=== PATIENT | female | born 1960 | race Caucasian/White ===

== ENCOUNTER 2017-12-09 15:31 | Inpatient (IN) | payer MEDICAID, OTHER ==
[~2017-12-09] VITALS: Ht 170.2 cm; Wt 68.0 kg
[~2017-12-09 15:31] MED LIST: CYCL-1 PO
[2017-12-09] MEDS ORDERED: normal saline 1000ML IV soln IV ONE (15:50)
[2017-12-09 16:28] LABS: BASOPHILS % (AUTO) 0.5 % (0-1); EOSINOPHILS # (AUTO) 0.1 X10'3 (0-0.9); HEMATOCRIT 31.2 % (35.0-45.0); HEMOGLOBIN 10.8 g/dl (12.0-16.0); LYMPHOCYTES # (AUTO) 1.3 X10'3 (1.1-4.8); LYMPHOCYTES % (AUTO) 19.9 % (21-51); MEAN CORPUSCULAR HEMOGLOBIN 29.8 PG (27.0-31.0); MEAN CORPUSCULAR HGB CONC 34.4 % (33.0-36.5); MEAN CORPUSCULAR VOLUME 86.5 FL (78-98); MEAN PLATELET VOLUME 9.6 FL (7.4-10.4); MONOCYTES # (AUTO) 0.5 X10'3 (0-0.9); MONOCYTES % (AUTO) 8.1 % (2-12); NEUTROPHILS # (AUTO) 4.4 X10'3 (1.8-7.7); NEUTROPHILS % (AUTO) 69.5 % (42-75); PLATELET COUNT 165 X10'3 (140-440); RED BLOOD COUNT 3.61 X10'6 (4.20-5.60); WHITE BLOOD COUNT 6.3 X10'3 (4.5-11.0)
[2017-12-09 16:41] LABS: PARTIAL THROMBOPLASTIN TIME 24 SECONDS (22-32); PROTHROMBIN TIME 10.7 SECONDS (9.0-12.0)
[2017-12-09 16:47] LABS: LACTIC SEPSIS 2.3 MMOL/L (0.4-2.0)
[2017-12-09 16:55] LABS: ALANINE AMINOTRANSFERASE 19 U/L (12-78); ALBUMIN 3.5 G/DL (3.4-5.0); ALBUMIN/GLOBULIN RATIO 0.9 (1.1-1.5); ALKALINE PHOSPHATASE 127 IU/L (46-116); ANION GAP 13 (8-16); ASPARTATE AMINO TRANSFERASE 11 U/L (10-37); BILIRUBIN,TOTAL 0.8 MG/DL (0.1-1.0); BLOOD UREA NITROGEN 26 MG/DL (7-18); BUN/CREATININE RATIO 9.4 (6.6-38.0); CALCIUM 10.2 MG/DL (8.5-10.1); CHLORIDE 93 MMOL/L (99-107); CREATININE 2.76 MG/DL (0.40-0.90); ETHANOL < 0.010 GM/DL (0.0-0.010); POTASSIUM 3.3 MMOL/L (3.5-5.1); SODIUM 129 MMOL/L (135-145); TOTAL CARBON DIOXIDE 23.4 MMOL/L (24-32); TOTAL PROTEIN 7.6 G/DL (6.4-8.2); TROPONIN I < 0.04 NG/ML (0.0-0.05); eGFR 18 ML/MIN
[2017-12-09 17:02] LABS: GLUCOSE 693 MG/DL (70-104)
[2017-12-09] MEDS ORDERED: potassium Cl 10 mEq/100mL bag IV ONE (17:30)
[2017-12-09] MEDS ORDERED: insulin regular, human 10 units/0.1 ml syringe IV ONE (17:45)
[2017-12-09] MEDS: potassium 10mEq/100ml NS w/LIDOcaine (10mg/bag) IV SCH ×2 (17:50→19:08)
[2017-12-09] MEDS ORDERED: glucagon, human recombinant 1mg kit SUBCUT PRN (18:15)
[2017-12-09] MEDS ORDERED: ondansetron/PF 4mg/2ml inj IV PRN (18:15)
[2017-12-09] MEDS ORDERED: mag hydrox/Alum hydrox/simeth 30ml oral suspension PO PRN (18:15)
[2017-12-09] MEDS ORDERED: MESSAGE TO PHARMACY PO ONE (18:15)
[2017-12-09] MEDS ORDERED: acetaminophen 325mg tablet PO PRN ×2 (18:15)
[2017-12-09] MEDS ORDERED: dextrose 50%-water 50ml dispensing syringe IV PRN ×2 (18:15)
[2017-12-09] MEDS ORDERED: morphine 4 MG/ML inj SYRINge IV PRN (18:15)
[2017-12-09] MEDS ORDERED: potassium Cl 20 mEq SR tablet PO PRN (18:15)
[2017-12-09] MEDS ORDERED: dextrose ORAL solution 15 GM/59 ML bottle PO PRN ×2 (18:15)
[2017-12-09] MEDS ORDERED: potassium Cl 40MEQ/NS 500ml 500 ML IV PRN ×2 (18:15)
[2017-12-09] MEDS ORDERED: HYDROcodone/acetaminophen 5mg/325mg tablet PO PRN (18:15)
[2017-12-09] MEDS: normal saline 1000ml 1,000 ML IV SCH (18:25)
[2017-12-09 18:39] LABS: HEMOGLOBIN A1C > 14.0 % (4.5-6.2)
[2017-12-09] MEDS: docusate sod 100mg capsule PO SCH (20:09)
[2017-12-09] MEDS: heparin, porcine 5000 units/ml vial SQ SCH (20:09)
[2017-12-09] MEDS ORDERED: GABA-532 PO (20:32)
[2017-12-09] MEDS ORDERED: temazepam 15mg capsule PO PRN (21:00)
[2017-12-09 21:10] VITALS: BP 106/65
[2017-12-09 21:44] LABS: CLARITY,URINE CLEAR (Clear); COLOR,URINE YELLOW (Yellow); GLUCOSE, URINE >=1000 mg/dl (Neg); KETONES,URINE NEGATIVE (Neg); LEUKOCYTE ESTERASE ,URINE NEGATIVE (Neg); NITRITES, URINE NEGATIVE (Neg); OCCULT BLOOD,URINE NEGATIVE (Neg); PH,URINE 5.5 (4.8-8.0); PROTEIN,URINE NEGATIVE (Neg); UROBILINOGEN,URINE 0.2 E.U/dL (0.2-1.0)
[2017-12-09 21:45] LABS: UA COLLECTION TYPE VOIDED
[2017-12-09] MEDS ORDERED: morphine 2 MG/ML inj. syringe IV PRN (21:47)
[2017-12-09 21:50] LABS: URINE HCG NEGATIVE (NEG)
[2017-12-09 21:51] LABS: BACTERIA,URINE 2+ /HPF (Neg); MUCUS STRANDS FEW /LPF (Neg); RBC,URINE NONE SEEN /HPF (0-2); SQUAMOUS EPITHELIAL CELL,UR MODERATE /LPF (FEW); WBC,URINE 0-4 /HPF (0-4); YEAST FEW /HPF (NEGATIVE)
[2017-12-09 21:52] LABS: URINE AMPHETAMINE SCREEN POSITIVE (Neg); URINE BARBITUATE SCREEN NEGATIVE (Neg); URINE BENZODIAZEPINES SCREEN NEGATIVE (Neg); URINE CANNABINOID SCREEN NEGATIVE (Neg); URINE COCAINE SCREEN NEGATIVE (Neg); URINE METHADONE SCREEN NEGATIVE (Neg); URINE OPIATE SCREEN NEGATIVE (Neg); URINE PHENCYCLIDINE SCREEN NEGATIVE (Neg)
[2017-12-09] MEDS: insulin Lispro (HumaLOG) vial - multi-dose SQ SCH (21:56)
[2017-12-09] MEDS: insulin glargine (Lantus) pen - multi-dose SQ SCH (21:57)
[2017-12-09] MEDS ORDERED: INSU100V9 SQ (23:28)
[2017-12-09] MEDS ORDERED: HYDR12.5 PO (23:30)
[2017-12-09] MEDS ORDERED: SAXA5TAB PO (23:32)
[2017-12-10] VITALS: BP 102/74
[2017-12-10] MEDS: normal saline 1000ml 1,000 ML IV SCH ×4 (01:21→21:40)
[2017-12-10 05:07] LABS: BASOPHILS % (AUTO) 0.5 % (0-1); EOSINOPHILS # (AUTO) 0.1 X10'3 (0-0.9); HEMATOCRIT 28.6 % (35.0-45.0); HEMOGLOBIN 9.8 g/dl (12.0-16.0); LYMPHOCYTES # (AUTO) 1.9 X10'3 (1.1-4.8); LYMPHOCYTES % (AUTO) 39.1 % (21-51); MEAN CORPUSCULAR HEMOGLOBIN 30.1 PG (27.0-31.0); MEAN CORPUSCULAR HGB CONC 34.2 % (33.0-36.5); MEAN CORPUSCULAR VOLUME 88.1 FL (78-98); MEAN PLATELET VOLUME 9.3 FL (7.4-10.4); MONOCYTES # (AUTO) 0.5 X10'3 (0-0.9); MONOCYTES % (AUTO) 9.6 % (2-12); NEUTROPHILS # (AUTO) 2.3 X10'3 (1.8-7.7); NEUTROPHILS % (AUTO) 47.8 % (42-75); PLATELET COUNT 120 X10'3 (140-440); RED BLOOD COUNT 3.24 X10'6 (4.20-5.60); WHITE BLOOD COUNT 4.9 X10'3 (4.5-11.0)
[2017-12-10 05:25] LABS: ALANINE AMINOTRANSFERASE 22 U/L (12-78); ALBUMIN 2.5 G/DL (3.4-5.0); ALBUMIN/GLOBULIN RATIO 0.7 (1.1-1.5); ALKALINE PHOSPHATASE 102 IU/L (46-116); ANION GAP 6 (8-16); ASPARTATE AMINO TRANSFERASE 12 U/L (10-37); BILIRUBIN,TOTAL 0.7 MG/DL (0.1-1.0); BLOOD UREA NITROGEN 21 MG/DL (7-18); BUN/CREATININE RATIO 13.3 (6.6-38.0); CALCIUM 8.6 MG/DL (8.5-10.1); CHLORIDE 106 MMOL/L (99-107); CHOL/HDL RATIO 3.6 (0.00-4.99); CHOLESTEROL 153 MG/DL (0-200); CREATININE 1.58 MG/DL (0.40-0.90); GLUCOSE 252 MG/DL (70-104); HDL CHOLESTEROL 43 MG/DL (35-60); LDL CHOLESTEROL 89 MG/DL (50-100); SODIUM 137 MMOL/L (135-145); TOTAL CARBON DIOXIDE 25.2 MMOL/L (24-32); TOTAL PROTEIN 5.9 G/DL (6.4-8.2); TRIGLYCERIDES 178 MG/DL (20-135); eGFR 34 ML/MIN
[2017-12-10] MEDS: potassium Cl 20 mEq SR tablet PO PRN ×3 (05:41→18:35)
[2017-12-10 07:17] VITALS: BP 138/72
[2017-12-10 07:18] VITALS: BP 113/65
[2017-12-10] MEDS: K and/or MAG REPLACEMENT MC SCH (08:00)
[2017-12-10] MEDS: heparin, porcine 5000 units/ml vial SQ SCH ×2 (08:02→20:00)
[2017-12-10] MEDS: nystatin 15 GM powder TP SCH ×3 (08:02→21:40)
[2017-12-10] MEDS: docusate sod 100mg capsule PO SCH ×2 (08:02→20:00)
[2017-12-10] MEDS: insulin Lispro (HumaLOG) vial - multi-dose SQ SCH ×3 (08:30→18:34)
[2017-12-10 13:03] VITALS: BP 98/59
[2017-12-10 18:45] VITALS: BP 105/55
[2017-12-10] MEDS: insulin glargine (Lantus) pen - multi-dose SQ SCH (21:36)
[2017-12-10 23:00] VITALS: BP 92/51
[2017-12-11] MEDS: normal saline 1000ml 1,000 ML IV SCH ×3 (02:38→19:13)
[2017-12-11 07:00] VITALS: BP 98/43
[2017-12-11 07:21] LABS: BASOPHILS % (AUTO) 0.5 % (0-1); EOSINOPHILS # (AUTO) 0.1 X10'3 (0-0.9); EOSINOPHILS % (AUTO) 2.3 % (0-6); HEMATOCRIT 27.6 % (35.0-45.0); HEMOGLOBIN 9.6 g/dl (12.0-16.0); LYMPHOCYTES # (AUTO) 1.8 X10'3 (1.1-4.8); LYMPHOCYTES % (AUTO) 39.8 % (21-51); MEAN CORPUSCULAR HEMOGLOBIN 30.3 PG (27.0-31.0); MEAN CORPUSCULAR HGB CONC 34.7 % (33.0-36.5); MEAN CORPUSCULAR VOLUME 87.4 FL (78-98); MEAN PLATELET VOLUME 8.8 FL (7.4-10.4); MONOCYTES # (AUTO) 0.3 X10'3 (0-0.9); MONOCYTES % (AUTO) 7.6 % (2-12); NEUTROPHILS # (AUTO) 2.2 X10'3 (1.8-7.7); NEUTROPHILS % (AUTO) 49.8 % (42-75); PLATELET COUNT 128 X10'3 (140-440); RED BLOOD COUNT 3.16 X10'6 (4.20-5.60); RED CELL DISTRIBUTION WIDTH 14.1 % (11.5-14.5); WHITE BLOOD COUNT 4.5 X10'3 (4.5-11.0)
[2017-12-11 07:37] LABS: ALANINE AMINOTRANSFERASE 19 U/L (12-78); ALBUMIN 2.2 G/DL (3.4-5.0); ALBUMIN/GLOBULIN RATIO 0.6 (1.1-1.5); ALKALINE PHOSPHATASE 98 IU/L (46-116); ANION GAP 8 (8-16); ASPARTATE AMINO TRANSFERASE 14 U/L (10-37); BILIRUBIN,TOTAL 0.5 MG/DL (0.1-1.0); BLOOD UREA NITROGEN 21 MG/DL (7-18); BUN/CREATININE RATIO 18.3 (6.6-38.0); CHLORIDE 108 MMOL/L (99-107); CREATININE 1.15 MG/DL (0.40-0.90); GLUCOSE 274 MG/DL (70-104); POTASSIUM 4.1 MMOL/L (3.5-5.1); SODIUM 139 MMOL/L (135-145); TOTAL CARBON DIOXIDE 23.5 MMOL/L (24-32); TOTAL PROTEIN 5.6 G/DL (6.4-8.2); eGFR 49 ML/MIN
[2017-12-11] MEDS: heparin, porcine 5000 units/ml vial SQ SCH ×2 (08:00→20:00)
[2017-12-11] MEDS: nystatin 15 GM powder TP SCH ×3 (08:00→21:00)
[2017-12-11] MEDS: K and/or MAG REPLACEMENT MC SCH (08:00)
[2017-12-11] MEDS: docusate sod 100mg capsule PO SCH ×2 (08:00→20:00)
[2017-12-11 11:00] VITALS: BP 102/53
[2017-12-11] MEDS ORDERED: magnesium Cl slow-release 64mg tablet PO PRN (11:55)
[2017-12-11] MEDS ORDERED: magnesium 1gm/100ml D5W IVPB 100 ML IV PRN (11:55)
[2017-12-11] MEDS ORDERED: magnesium 4gm in 100ml NS 100 ML IV PRN (11:55)
[2017-12-11] MEDS: insulin Lispro (HumaLOG) vial - multi-dose SQ SCH ×2 (13:27→19:20)
[2017-12-11 19:20] VITALS: BP 116/75
[2017-12-11] MEDS: insulin glargine (Lantus) pen - multi-dose SQ SCH (21:43)
[2017-12-11 23:00] VITALS: BP 123/63
[2017-12-12] MEDS: normal saline 1000ml 1,000 ML IV SCH (05:13)
[2017-12-12 05:51] LABS: BASOPHILS % (AUTO) 0.6 % (0-1); EOSINOPHILS # (AUTO) 0.1 X10'3 (0-0.9); HEMATOCRIT 30.6 % (35.0-45.0); HEMOGLOBIN 10.5 g/dl (12.0-16.0); LYMPHOCYTES # (AUTO) 1.9 X10'3 (1.1-4.8); LYMPHOCYTES % (AUTO) 41.2 % (21-51); MEAN CORPUSCULAR HEMOGLOBIN 29.9 PG (27.0-31.0); MEAN CORPUSCULAR HGB CONC 34.1 % (33.0-36.5); MEAN CORPUSCULAR VOLUME 87.6 FL (78-98); MONOCYTES # (AUTO) 0.4 X10'3 (0-0.9); NEUTROPHILS # (AUTO) 2.2 X10'3 (1.8-7.7); NEUTROPHILS % (AUTO) 48.2 % (42-75); PLATELET COUNT 147 X10'3 (140-440); RED CELL DISTRIBUTION WIDTH 14.2 % (11.5-14.5); WHITE BLOOD COUNT 4.5 X10'3 (4.5-11.0)
[2017-12-12 06:34] LABS: ALANINE AMINOTRANSFERASE 20 U/L (12-78); ALBUMIN 2.4 G/DL (3.4-5.0); ALBUMIN/GLOBULIN RATIO 0.6 (1.1-1.5); ALKALINE PHOSPHATASE 106 IU/L (46-116); ANION GAP 11 (8-16); ASPARTATE AMINO TRANSFERASE 17 U/L (10-37); BILIRUBIN,TOTAL 0.5 MG/DL (0.1-1.0); BLOOD UREA NITROGEN 13 MG/DL (7-18); BUN/CREATININE RATIO 14.3 (6.6-38.0); CALCIUM 8.1 MG/DL (8.5-10.1); CHLORIDE 107 MMOL/L (99-107); CREATININE 0.91 MG/DL (0.40-0.90); GLUCOSE 148 MG/DL (70-104); MAGNESIUM 1.3 MG/DL (1.5-2.4); PHOSPHORUS 2.2 MG/DL (2.3-4.5); POTASSIUM 3.4 MMOL/L (3.5-5.1); SODIUM 141 MMOL/L (135-145); TOTAL PROTEIN 6.2 G/DL (6.4-8.2); eGFR 64 ML/MIN
[2017-12-12 07:00] VITALS: BP 103/67
[2017-12-12] MEDS: K and/or MAG REPLACEMENT MC SCH (08:00)
[2017-12-12] MEDS: docusate sod 100mg capsule PO SCH (08:26)
[2017-12-12] MEDS: heparin, porcine 5000 units/ml vial SQ SCH (08:27)
[2017-12-12] MEDS: insulin Lispro (HumaLOG) vial - multi-dose SQ SCH ×2 (08:29→13:53)
[2017-12-12] MEDS: nystatin 15 GM powder TP SCH ×2 (08:32→13:50)
[2017-12-12] MEDS ORDERED: ASPI81TA52 PO (14:39)
[2017-12-12] MEDS ORDERED: LISI-604 PO (14:39)
[2017-12-12] MEDS ORDERED: HUM7525 SQ (14:39)
== END 2017-12-12 15:37 | disposition home or self-care (01) | DRG 469 ==
LOC: ER 15:31 → ED HOLD 17:32 → EDBEDREQ 20:28 → SUR 3N 20:51
PROVIDERS: ADMIT Internal Medicine; ATTEND Family Medicine
PROC: [UNRECOGNIZED PROCEDURE] (principal; 2017-12-10)
DX: N17.0 Acute kidney failure with tubular necrosis (principal); G93.40 Encephalopathy, unspecified; E11.42 Type 2 diabetes mellitus with diabetic polyneuropathy; I95.9 Hypotension, unspecified; E11.65 Type 2 diabetes mellitus with hyperglycemia; E83.52 Hypercalcemia; D63.8 Anemia in other chronic diseases classified elsewhere; E78.00 Pure hypercholesterolemia, unspecified; E78.5 Hyperlipidemia, unspecified; E86.0 Dehydration; E87.1 Hypo-osmolality and hyponatremia; E87.6 Hypokalemia; F15.10 Other stimulant abuse, uncomplicated; F17.200 Nicotine dependence, unspecified, uncomplicated; F41.9 Anxiety disorder, unspecified; I10 Essential (primary) hypertension; Z91.19 Patient's noncompliance with other medical treatment and regimen; Z88.8 Allergy status to other drugs, medicaments and biological substances; Z91.018 Allergy to other foods; Z71.6 Tobacco abuse counseling; Z71.51 Drug abuse counseling and surveillance of drug abuser
CPT/HCPCS: 36415; 70450; 71045; 78070; 78071; 80053; 80061; 80305; 80320; 81001; 81025; 82140; 82330; 82948; 83036; 83605; 83735; 83970; 84100; 84132; 84145; 84443; 84484; 85025; 85610; 85730; 87040; 87070; 93005; 96360; 97110; 97116; 97161; 99285; A9500; J1644; J1815; J3480; J7030

== ENCOUNTER 2019-04-16 13:09 | Emergency (ER) | payer MEDICARE, MEDICAID ==
[~2019-04-16] VITALS: Ht 175.3 cm; Wt 106.0 kg
[~2019-04-16 13:09] MED LIST changes: -CYCL-1 PO; +GABA-532 PO; +HUM7525 SQ; +INSU100V9 SQ; +LISI-604 PO; +SAXA5TAB PO
[2019-04-16 13:28] VITALS: BP 125/66
== END 2019-04-16 16:57 | disposition left against medical advice (07) ==
LOC: ER 13:10
DX: M79.89 Other specified soft tissue disorders (principal); Z53.21 Procedure and treatment not carried out due to patient leaving prior to being seen by health care provider

== ENCOUNTER 2019-04-17 10:06 | Emergency (ER) | payer MEDICARE, MEDICAID ==
[~2019-04-17] VITALS: Ht 175.3 cm; Wt 106.0 kg
--- NOTE | 2019-04-17 12:34 | NUR ---
Faxed consent and MRI form.
[2019-04-17 15:35] VITALS: BP 150/72
== END 2019-04-17 15:37 | disposition home or self-care (01) ==
LOC: ER 10:06
DX: M25.512 Pain in left shoulder (principal); E78.00 Pure hypercholesterolemia, unspecified; I10 Essential (primary) hypertension; E11.9 Type 2 diabetes mellitus without complications; F41.9 Anxiety disorder, unspecified; F17.200 Nicotine dependence, unspecified, uncomplicated; Z60.2 Problems related to living alone; Z88.8 Allergy status to other drugs, medicaments and biological substances; Z79.4 Long term (current) use of insulin; Z79.899 Other long term (current) drug therapy
CPT/HCPCS: 73221; 82948; 99284